=== PATIENT | female | born 1965 | race Caucasian/White ===

== ENCOUNTER 2023-08-29 09:29 | Outpatient (CLI) | payer OTHER, SELFPAY ==
[2023-08-29 19:46] LABS: Hematocrit 43.4 % (37.0-47.0); Hemoglobin 14.5 g/dL (12.0-15.0); Mean Corpuscular HGB Conc 33.4 g/dl (32-36); Mean Corpuscular Hemoglobin 31.3 pg (26-34); Mean Corpuscular Volume 93.5 fl (80-100); Mean Platelet Volume 10.1 fl (7.4-10.4); Platelet Count Result 475 k/mm3 (150-375); Red Blood Count 4.64 M/mm3 (4.2-5.4); Red Cell Distribution Width 12.5 % (11.5-14.5); White Blood Count 6.3 K/mm3 (4.5-10.0)
[2023-08-29 20:10] LABS: Alanine Aminotransferase 12 U/L (6-35); Albumin Level 4.2 g/dL (3.5-5.1); Alkaline Phosphatase 72 U/L (38-126); Anion Gap 6 mmol/L (8-16); Aspartate Amino Transferase 31 U/L (14-36); Bilirubin,Total 0.4 mg/dL (0.2-1.3); Blood Urea Nitrogen 16 mg/dL (7-17); Calcium 9.5 mg/dL (8.4-10.2); Carbon Dioxide 27 mmol/L (22-30); Chloride 105 mmol/L (98-107); Cholesterol 209 mg/dL (0-200); Estimated Glomerular Filt Rate > 60; Glucose 89 mg/dL (65-110); HDL Direct 58 mg/dL; Potassium 4.4 mmol/L (3.4-5.0); Sodium 138 mmol/L (137-145); Triglycerides 119 mg/dL (<150)
[2023-08-29 20:21] LABS: LDL Cholesterol Direct 107 mg/dL
== END 2023-08-29 09:30 | disposition home or self-care (01) ==
LOC: ANHBWCLAB 09:30
PROVIDERS: PCP Nurse Practitioner Adult Health; Visit Provider Nurse Practitioner Adult Health
DX: Z13.9 Encounter for screening, unspecified (principal); Z12.11 Encounter for screening for malignant neoplasm of colon; Z12.12 Encounter for screening for malignant neoplasm of rectum
CPT/HCPCS: 36415; 80053; 80061; 84443; 85027

== ENCOUNTER 2023-11-22 16:17 | Outpatient (CLI) | payer OTHER, SELFPAY ==
--- NOTE | ~2023-11-22 | XR_ITS ---
EXAMINATION: XR knee RT 3V DATE: 11/22/2023 16:37 INDICATION: Right knee pain. TECHNIQUE: 3 views of right knee were obtained. COMPARISON: None. FINDINGS: Bone alignment is normal. No fracture. There is moderate osteoarthritis of medial and navarro lofemoral compartments and mild osteoarthritis of lateral compartment. There is a small knee joint ef fusion. IMPRESSION: 1. Moderate right knee osteoarthritis. 2. Small right knee joint effusion. Reviewed, dictated and finalized at location A.
== END 2023-11-22 16:18 | disposition home or self-care (01) ==
PROVIDERS: PCP Nurse Practitioner Adult Health; Visit Provider Nurse Practitioner Adult Health
DX: M25.461 Effusion, right knee (principal); M17.11 Unilateral primary osteoarthritis, right knee
CPT/HCPCS: 73562

== ENCOUNTER 2023-12-30 10:43 | Outpatient (CLI) | payer OTHER, SELFPAY ==
--- NOTE | ~2023-12-30 | MR_ITS ---
MRI of the right knee Clinical history: Osteoarthritis Technique: Coronal proton density and proton density-weighted images, sagittal proton-density and T2 fat-sat images, and axial proton-density fat-saturated images were acquired. Findings: Anterior and posterior cruciate ligaments are intact. There is increased signal of the ACL, compatible with mucoid degenerative change. Medial collateral ligament and the lateral collateral li gament complex are intact. Popliteus tendon is intact. There is complex tearing at the posterior horn and posterior root of the medial meniscus, which are d iminutive. Suspected poorly delineated tear at the anterior horn of the lateral meniscus, with associ ated anterior 1.4 cm septated para meniscal cyst. There is extensive grade 4 chondral malacia the medial femoral condyle and medial tibial plateau towa rds the joint line. Articular cartilage in the lateral compartment demonstrates mild to moderate rashi dral malacia the lateral femoral condyle. There is patchy moderate chondral malacia the femoral troch annabel. Tricompartmental osteophytes are present, moderate to large. Extensor mechanism is intact. Small to moderate joint effusion. No Barraza's cyst. Impression: Complex tearing of the posterior horn and posterior root of the medial meniscus. Suspected poorly delineated tear of the anterior horn lateral meniscus with associated 1.4 cm anterio r septated parameniscal cyst. Advanced tricompartmental osteophytes, as detailed above. Plzbp-cm-ahelfghg joint effusion. Mucoid degenerative change of the ACL. Reviewed, dictated and finalized at [facility]. Impression: Complex tearing of the posterior horn and posterior root of the medial meniscus . Suspected poorly delineated tear of the anterior horn lateral meniscus with ass ociated 1.4 cm anterior septated parameniscal cyst. Advanced tricompartmental osteophytes, as detailed above. Nxyke-ql-irmcateo joint effusion. Mucoid degenerative change of the ACL.
== END 2023-12-30 10:44 ==
LOC: GOSHIMG 10:45
PROVIDERS: PCP Orthopaedic Surgery; Visit Provider Orthopaedic Surgery
DX: M17.11 Unilateral primary osteoarthritis, right knee (principal); S83.231A Complex tear of medial meniscus, current injury, right knee, initial encounter; X58.XXXA Exposure to other specified factors, initial encounter; M25.461 Effusion, right knee
CPT/HCPCS: 73721

== ENCOUNTER 2024-02-16 09:39 | Outpatient (CLI) | payer OTHER, SELFPAY ==
--- NOTE | 2024-02-16 10:22 | ECG_ITS ---
[facility] [address] Test Date: 2024-02-16 Pat Name: Justine Gonsales Department: Room: Gender: F Second Baller: : 1965 Requested By: Sinan Perez Order Number: [id number] Krysta MD: Gómez Edwards M.D. Measurements Intervals [place] Rate: 61 P: 72 TN: 152 QRS: 36 QRSD: 78 T: 35 QT: 401 QTc: 405 Interpretive Statements SINUS RHYTHM POSSIBLE LEFT ATRIAL ENLARGEMENT [-0.1mV P WAVE IN V1/V2] No previous ECG available for comparison Electronically Signed On 02-16-2024 13:49:26 CDT by Gómez Edwards M.D.
[2024-02-16 10:44] LABS: Basophils Absolute Auto 0.1 K/mm3 (0.0-0.1); Basophils Percent Auto 0.9 % (0.2-1.2); Eosinophils Absolute Auto 0.2 K/mm3 (0-0.3); Eosinophils Percent Auto 2.5 % (0-4.4); Hematocrit 42.6 % (37.0-47.0); Hemoglobin 14.1 g/dL (12.0-15.0); Immature Granulocyte Absolute 0.01 K/mm3 (0.00-0.031); Immature Granulocyte Percent A 0.1 % (0-0.5); Lymphocytes Absolute Auto 2.14 K/mm3 (0.9-3.2); Lymphocytes Percent Auto 31.4 % (18.3-44.2); Mean Corpuscular HGB Conc 33.1 g/dl (32-36); Mean Corpuscular Hemoglobin 30.7 pg (26-34); Mean Corpuscular Volume 92.8 fl (80-100); Mean Platelet Volume 9.5 fl (7.4-10.4); Monocytes Absolute Auto 0.4 K/mm3 (0.1-0.6); Monocytes Percent Auto 5.9 % (2.6-8.5); Neutrophils Percent Auto 59.2 % (45.5-73.1); Platelet Count Result 441 k/mm3 (150-375); Red Blood Count 4.59 M/mm3 (4.2-5.4); Red Cell Distribution Width 12.7 % (11.5-14.5); White Blood Count 6.8 K/mm3 (4.5-10.0)
[2024-02-16 12:57] LABS: Albumin Level 4.3 g/dL (3.5-5.1); Estimated Glomerular Filt Rate > 60; Glucose 96 mg/dL (65-110)
[2024-02-16 13:23] LABS: Hemoglobin A1C 5.3 % (<5.7)
[2024-02-16 13:24] LABS: Urine Cotinine POSITIVE
== END 2024-02-16 09:40 | disposition home or self-care (01) ==
LOC: ANHSURGERY 09:43
PROVIDERS: PCP Nurse Practitioner Adult Health; Visit Provider Orthopaedic Surgery
DX: Z01.818 Encounter for other preprocedural examination (principal); M17.11 Unilateral primary osteoarthritis, right knee
CPT/HCPCS: 80307; 82040; 82565; 82947; 83036; 85025; 86850; 86900; 86901; 93005

== ENCOUNTER 2024-05-29 10:32 | Outpatient (CLI) | payer OTHER, SELFPAY ==
[2024-05-29 11:11] LABS: Basophils Percent Auto 0.6 % (0.2-1.2); Eosinophils Absolute Auto 0.2 K/mm3 (0-0.3); Eosinophils Percent Auto 2.7 % (0-4.4); Hemoglobin 12.3 g/dL (12.0-15.0); Immature Granulocyte Absolute 0.02 K/mm3 (0.00-0.031); Immature Granulocyte Percent A 0.3 % (0-0.5); Lymphocytes Absolute Auto 1.75 K/mm3 (0.9-3.2); Mean Corpuscular HGB Conc 32.4 g/dl (32-36); Mean Corpuscular Hemoglobin 30.3 pg (26-34); Mean Corpuscular Volume 93.6 fl (80-100); Monocytes Absolute Auto 0.5 K/mm3 (0.1-0.6); Monocytes Percent Auto 8.1 % (2.6-8.5); Neutrophils Absolute Auto 3.8 K/mm3 (1.3-6.7); Neutrophils Percent Auto 60.3 % (45.5-73.1); Platelet Count Result 517 k/mm3 (150-375); Red Blood Count 4.06 M/mm3 (4.2-5.4); Red Cell Distribution Width 12.2 % (11.5-14.5); White Blood Count 6.3 K/mm3 (4.5-10.0)
[2024-05-29 11:30] LABS: Albumin Level 4.2 g/dL (3.5-5.1); Estimated Glomerular Filt Rate > 60; Glucose 89 mg/dL (65-110)
[2024-05-29 11:49] LABS: Hemoglobin A1C 5.6 % (<5.7)
[2024-05-29 11:49] LABS: Urine Cotinine NEGATIVE
[2024-05-29 13:04] LABS: MRSA (PCR) NOT DETECTED (NOT DETECTE)
== END 2024-05-29 10:33 | disposition home or self-care (01) ==
LOC: ANHSURGERY 10:37
PROVIDERS: PCP Nurse Practitioner Adult Health; Visit Provider Orthopaedic Surgery
DX: M17.11 Unilateral primary osteoarthritis, right knee (principal); Z01.818 Encounter for other preprocedural examination
CPT/HCPCS: 80307; 82040; 82565; 82947; 83036; 85025; 86850; 86900; 86901; 87641

== ENCOUNTER 2024-06-06 07:58 | Observation (INO) | payer OTHER, SELFPAY ==
[2024-02-16 09:48] VITALS: BMI 30.7
--- NOTE | 2024-02-16 10:03 | PC.NURSE ---
Report to the Outpatient Waiting Room, entrance under the green pavilion located off [facility], at time _6:00 AM on date __02/27/24 . Planned Procedure Time: __7:30 AM . Time changes happen often and if your time is changed the preop area will call you the afternoon before. - You and your visitor will be asked to self-screen and do not enter if you have any COVID symptoms. - A mask is optional within the hospital at this time. Patients may have clear liquids (water, carbonated beverages, clear teas, apple juice) until 3 hours prior to surgery (4:30 AM)with a maximum of 20 ounces. - No food from midnight until time of surgery - Infants may have breast milk until 4 hours before surgery, infant formula 6 hours prior to surgery. - Children will be allowed to drink immediately following surgery. If applicable, please bring a bottle or sippy cup to assist with drinking. Juice, water, soda, and popsicles are readily available. For infants on formula, please bring formula the day of surgery. Pacifiers are allowed. Take the following medications with a SIP of water the morning of surgery: ____NONE DO NOT STOP ANY OF YOUR OTHER PRESCRIPTION MEDICATIONS PRIOR TO SURGERY ?EXCEPT THE FOLLOWING Medications to discontinue per physician ___PT STATES WILL HOLD ASPIRIN AND IBUPROFEN 7 DAYS PRE OP.LAST DOSE 02/19/24, MAY TAKE TYLENOL IF NEEDED FOR PAIN. HOLD ALL VITAMINS 3 DAYS PRE OP .LAST DOSE Please no make-up, nail citizen of [place], hairspray, perfume, deodorant, or body powder the day of surgery. No jewelry (including any body piercings) or valuables the day of surgery, leave them at home. Please take a shower or bath the night before, or the morning of, surgery with an antibacterial soap. Wear comfortable, loose fitting clothing. Children are encouraged to wear pajamas. - Jewelry must be removed prior to entering the operating room. Rings and piercings that are not removed may be cut off. - The hospital will not accept responsibility for valuables. - Please leave all valuables, including medications, at home the day of surgery. If you are going home after surgery, a licensed tractor trailer driver must drive you home. - NO public transportation without another adult if you receive anesthesia. - We recommend that an adult stay with you for 24 hours following discharge. - We also recommend that you do not drive, make important decision, drink alcoholic beverages, or take any drugs that were not prescribed by your health care provider for at least 24 hours after your discharge time. Follow any additional instructions given to you from your surgeon. If you or anyone in your household have experienced Covid symptoms in the past week, please notify your surgeon or the nurse liaison at the phone number below for possible testing. VERBAL AND WRITTEN instructions given to ___PATIENT and asked if any additional questions and then verbalized understanding. Patient advised to call surgeon office or pre surgery nurse liaison [phone] if any additional questions.
[2024-02-16 10:19] VITALS: BP 156/70; PULSE 63; RESP 18; TEMP 36.8; O2SAT 97
--- NOTE | 2024-02-23 19:37 | P.HP_ITS ---
H&P: HPI History of Present Illness Date/Time: 02/23/24 19:37 Chief Complaint: Patient has knee pain Right. She has osteoarthritis of the Right Knee, unresponsive to conservative treatment. Review of Systems Musculoskeletal: Musculoskeletal: Reports arthralgias, Reports joint swelling and Reports stiffness PMFSH Surgical History Surgical History History of back surgery History of x3 Family History Family History Mother Family history of malignant neoplasm of brain Father History of ETOH abuse Social History Social History Smoking packs per day: 0.75 Smoking cigarettes per day: 15.0 Years smoked: 20 Smoking pack-years: 15.00 Smoking status: Former smoker Tobacco type: cigarettes Smoking end date: 01/10/24 Additional smoking assessment comments: DENIES ANY FORM OF TOBACCO USE Alcohol intake: never Substance use: current Substance use type: marijuana Last use: 02/13/24 Do You Feel Safe in your Home?: Yes Lack of Transportation: No Lack of Food: Never True Current Housing: I Have Housing Concerned About Future Housing: No Difficulty Paying Gas/Electric Bills: No Difficulty Paying for Meds: No Currently Unemployed: No Education: High School Diploma/GED Difficulty w/ Childcare or Family Care: No Living arrangements: with family Occupation/Education: occupation 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[employer] Gender identity (if verbalized by the patient): Female Spiritual care concerns: No Agree to blood products: Yes Meds Home Medications and Allergies Home Medications Medication Instructions Recorded Confirmed Type aspirin 81 mg tablet,delayed 81 mg PO DAILY 10/04/23 02/16/24 History release (Adult Aspirin Regimen) multivitamin 1 tablet PO DAILY 10/04/23 02/16/24 History acetaminophen 500 mg capsule 1,000 mg PO Q6H PRN Pain 02/16/24 02/16/24 History ibuprofen 400 mg tablet 400 mg PO Q6H PRN Pain 02/16/24 02/16/24 History Allergies Allergy/AdvReac Type Severity Reaction Status Date / Time No Known Allergies Allergy Verified 02/16/24 09:49 Exam Narrative: Patient has ROM 5-110. NVI. She walks with an antalgic gait. She has pain with any motion. Eyes: General: appearance normal, both eyes and all related structures Neck: Neck: supple Resp: Effort & Inspection: normal respiratory effort Cardio: Rate: regular rate Rhythm: regular rhythm Assessment and Plan Assessment and plan (1) Osteoarthritis of right knee: Code(s): M17.11 - Unilateral primary osteoarthritis, right knee Status: Acute Assessment and Plan: Patient has osteoarthritis of the RIGHT knee. She also has a meniscal tear. She has failed conservative treatment., consisting of injections, medications, therapy and time. She would like to proceed with RIGHT TOTAL ARTHROPLASTY. I discussed risks, benefits, limitations and alternatives in detail. She understands and agrees.
[2024-05-28 09:26] VITALS: BMI 33.0
--- NOTE | 2024-05-28 09:51 | PC.NURSE ---
Report to the Outpatient Waiting Room, entrance under the green pavilion located off [facility], at time _6:00AM_ on date _06/04/24_. Planned Procedure Time: _7:30AM_.? Time changes happen often and if your time is changed the preop area will call you the afternoon before. - You and your visitor will be asked to self-screen and do not enter if you have any COVID symptoms. Please call surgeon if you need to reschedule. - A mask is optional within the hospital at this time. Patients may have clear liquids (water, carbonated beverages, clear teas, apple juice) until 3 hours prior to surgery with a maximum of 20 ounces. - No food from midnight until time of surgery and no smoking. Take only the following medications with a SIP of water on the morning of surgery: ____NONE DO NOT STOP ANY OF YOUR OTHER PRESCRIPTION MEDICATIONS PRIOR TO SURGERY EXCEPT THE FOLLOWING Medications to discontinue per physician __HOLD ASPIRIN & IBUPROFEN 7 DAYS PRE-OP PER DR PATEL- LAST DOSE 05/27/24. HOLD ALL VITAMINS/SUPPLEMENTS 3 DAYS PRE0OP PER ANESTHESIA- LAST DOSE 05/31/24. Please no make-up, nail faroese, hairspray, perfume, deodorant, or body powder the day of surgery.? No jewelry (including any body piercings) or valuables the day of surgery, leave them at home.? Please take a shower or bath the night before, or the morning of, surgery with an antibacterial soap.? Wear comfortable, loose fitting clothing.? - Jewelry must be removed prior to entering the operating room.? Rings and piercings that are not removed may be cut off. - The hospital will not accept responsibility for valuables.? - Please leave all valuables, including medications, at home the day of surgery. If you are going home after surgery, a licensed drop hammer pile driver operator must drive you home.? - NO public transportation without another adult if you receive anesthesia. - We recommend that an adult stay with you for 24 hours following discharge. - We also recommend that you do not drive, make important decision, drink alcoholic beverages, or take any drugs that were not prescribed by your health care provider for at least 24 hours after your discharge time. Follow any additional instructions given to you from your surgeon. Telephone instructions given to PATIENT and asked if any additional questions and then verbalized understanding. Patient advised to call surgeon office or pre surgery nurse liaison [phone] if any additional questions.
--- NOTE | 2024-05-30 07:33 | P.HP_ITS ---
H&P: HPI History of Present Illness Date/Time: 05/30/24 07:33 Chief Complaint: Patient has osteoarthritis right knee that is unresponsive it is to conservative treatment at this time. She would like to proceed with knee replacement surgery. Review of Systems Musculoskeletal: Musculoskeletal: Reports arthralgias, Reports joint swelling and Reports stiffness Neurologic: Reports abnormal gait [facility] Surgical History Surgical History History of back surgery History of x3 Family History Family History Mother Family history of malignant neoplasm of brain Father History of ETOH abuse Social History Social History Smoking packs per day: 1 Smoking cigarettes per day: 20.0 Years smoked: 43 Smoking pack-years: 43.00 Smoking status: Former smoker Tobacco type: cigarettes Smoking end date: 03/18/24 Additional smoking assessment comments: DENIES ANY FORM OF TOBACCO USE Alcohol intake: never Substance use: current Substance use type: marijuana Last use: 02/13/24 Do You Feel Safe in your Home?: Yes Lack of Transportation: No Lack of Food: Never True Current Housing: I Have Housing Concerned About Future Housing: No Difficulty Paying Gas/Electric Bills: No Difficulty Paying for Meds: No Currently Unemployed: No Education: High School Diploma/GED Difficulty w/ Childcare or Family Care: No Living arrangements: with family Additional living arrangements comments: [place] Occupation/Education: occupation 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[employer] Gender identity (if verbalized by the patient): Female Spiritual care concerns: No Agree to blood products: Yes Meds Home Medications and Allergies Home Medications Medication Instructions Recorded Confirmed Type aspirin 81 mg tablet,delayed 81 mg PO DAILY 10/04/23 05/28/24 History release (Adult Aspirin Regimen) multivitamin 1 tablet PO DAILY 10/04/23 05/28/24 History acetaminophen 500 mg capsule 1,000 mg PO Q6H PRN Pain 02/16/24 05/28/24 History ibuprofen 400 mg tablet 400 mg PO Q6H PRN Pain 02/16/24 05/28/24 History tramadol 50 mg tablet 50 mg PO Q8H PRN pain #21 tabs 05/29/24 Rx Allergies Allergy/AdvReac Type Severity Reaction Status Date / Time No Known Allergies Allergy Verified 05/28/24 09:22 Exam Narrative: On exam she has motion of her right knee from about 3 to 110?. She has varus deformity grinding crepitus and pain manipulation. She walks with an antalgic gait. Assessment and Plan Assessment and plan (1) Osteoarthritis of right knee: Code(s): M17.11 - Unilateral primary osteoarthritis, right knee Status: Acute Assessment and Plan: Patient has arthritis of her right knee. She has failed conservative treatment like to proceed knee replacement surgery. I have discussed this with her risks benefits limitations and alternatives in detail will proceed her request with total arthroplasty on the Right knee.
[2024-06-04] VITALS (14 sets, daily range): BP systolic 125–176; BP diastolic 63–86; PULSE 63–72; RESP 12–18; TEMP 36.1–37.1; O2SAT 87–100
[2024-06-04] MEDS: ACETAMINOPHEN 500 MG TABLET 1000 MG PO (06:20)
[2024-06-04] MEDS: LACTATED RINGERS 1,000 ML 30 ML IV CONT ×2 (06:30→09:40)
[2024-06-04] MEDS: VANCOMYCIN 1,250 MG/NS 250 ML BAG 166.67 MG IVPB (06:32)
--- NOTE | 2024-06-04 06:52 | WPDHPUPDATE1 ---
History and Physical Update Update Date/Time: 06/04/24 06:52 History and Physical has been reviewed, including an updated exam of the patient. There are NO changes in the patient's condition. Risks, benefits, and alternatives have been discussed and questions answered. Patient agrees to proceed with procedure.
[2024-06-04] MEDS: TRANEXAMIC ACID 1,000MG/ISO100 1,000 MG/100 ML BAG 200 MG IVPB (07:00)
--- NOTE | 2024-06-04 07:06 | WPDANESEPPF ---
Anes - Initial Pre Proc Eval Procedure: Operation Date: 06/04/24 07:30 Proposed Procedures p Right Total Knee Arthroplasty - Sinan Davis MD Date/Time: 06/04/24 07:06 Surgeon: Sinan Davis MD Pre Op Diagnosis: oa right knee Patient Data Age: 58 Gender: F Height: 1.57 m Weight: 80.6 kg Last Vital Signs Temp 97.1 F L 06/04/24 06:41 Pulse 63 06/04/24 06:41 Resp 16 06/04/24 06:41 BP 164/74 H 06/04/24 07:02 Pulse Ox 97 06/04/24 06:41 O2 Del Method Room Air 06/04/24 06:41 Allergies Allergy/AdvReac Type Severity Reaction Status Date / Time No Known Allergies Allergy Verified 06/04/24 06:10 Home Medications Medication Instructions Recorded Confirmed Type aspirin 81 mg tablet,delayed 81 mg PO DAILY 10/04/23 06/04/24 History release (Adult Aspirin Regimen) multivitamin 1 tablet PO DAILY 10/04/23 06/04/24 History acetaminophen 500 mg capsule 1,000 mg PO Q6H PRN Pain 02/16/24 06/04/24 History ibuprofen 400 mg tablet 400 mg PO Q6H PRN Pain 02/16/24 06/04/24 History tramadol 50 mg tablet 50 mg PO Q8H PRN pain #21 tabs 05/29/24 06/04/24 Rx rivaroxaban 10 mg tablet (Xarelto) 10 mg PO DAILY PE prophylaxis s/p 06/04/24 Rx joint replacement 10 days #10 tabs Patient hx anesthesia problems: none Family hx anesthesia problems: none Results Review: All pre-operative results and documents have been reviewed as part of the pre-operative evaluation. [facility] Surgical History Surgical History History of back surgery History of x3 Family History Family History Mother Family history of malignant neoplasm of brain Father History of ETOH abuse Social History Social History Smoking packs per day: 1 Smoking cigarettes per day: 20.0 Years smoked: 43 Smoking pack-years: 43.00 Smoking status: Former smoker Tobacco type: cigarettes Smoking end date: 03/18/24 Additional smoking assessment comments: DENIES ANY FORM OF TOBACCO USE Alcohol intake: never Substance use: current Substance use type: marijuana Last use: 02/13/24 Do You Feel Safe in your Home?: Yes Lack of Transportation: No Lack of Food: Never True Current Housing: I Have Housing Concerned About Future Housing: No Difficulty Paying Gas/Electric Bills: No Difficulty Paying for Meds: No Currently Unemployed: No Education: High School Diploma/GED Difficulty w/ Childcare or Family Care: No Living arrangements: with family Additional living arrangements comments: [place] Occupation/Education: occupation 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 Lower R incisor is very loose. Pt states that she is planning to have it pulled in the next several weeks. ) Neurological: alert and oriented Last oral intake: >/= 8 hours ASA classification: II Emergent: no Anesthetic plan: proceed Anesthesia type and monitoring: general and standard monitoring Results Review: All pre-operative results and documents have been reviewed as part of the pre-operative evaluation. Ex smoker, 43 pack years. Informed Consent: The patient's anesthetic plan and its attendant risks and benefits were discussed with the patient/family/POA. Questions were solicited and answers provided to the satisfaction of the patient/family/POA.
--- NOTE | 2024-06-04 07:21 | SUR.PREOP ---
0710- PT HAD SOME MILD SCALP ITCHING WHEN VANCO AND TXA WAS RUNNING IN PRE OP.NO OTHER SIGNS OR SYMPTOMS. TURNED OFF MEDICATIONS AND PT UP TO RESTROOM. PT STATED THE SCALP ITCHING WAS RESOLVING. SPOKE WITH DR. PATEL. HE STATED TO SLOW DOWN RATE AND IF ITCHING STARTS AGAIN OR OTHER SYMPTOMS TO STOP VANCO. UPDATED PT, BLOCK PILER AND ANESTHESIA. VANCO PAO SLOWED DOWN TO 100 HR
[2024-06-04] MEDS: ceFAZolin 2 GM/D5W 50 ML 2 GM/50 ML BAG IVPB ×3 (07:40→23:55)
[2024-06-04] MEDS: SODIUM CHLORIDE 0.9% IV 37.7 ML, MORPHINE SULFATE INJ (*CRX) 2 MG, ROPivacaine HCL 1% 2... INFILTRATE (07:59)
--- NOTE | 2024-06-04 08:27 | WPDANESPNB ---
Anes - Peripheral Nerve Block Date/Time: 06/04/24 08:27 I have discussed with the patient/family/POA the placement of a peripheral nerve block for post-operative pain management, including associated risks, benefits, complications, and side effects. Alternative methods of post-operative analgesia were detailed. Questions were solicited and answers provided to the satisfaction of the patient/family/POA. Time-Out: A pre-procedural Time-Out was completed immediately before starting the procedure and confirmed: Patient Identification, Site, Procedure, Patient Position and the Availability of Requisite Equipment. Assisted by and time out by myself and OR hydroelectric component machinist Obed GAONA. Clinical Indications: Acute post-operative pain management requested by the operative surgeon. Nerve Block Insertion Note Anes-nerve block: adductor canal right Patient position: supine Skin prep: chlorhexidine Needle: 22 gauge, stimulating, insulated echogenic needle. Needle length: 80 mm Technique: ultrasound Injectate: other (Bupiv 0.5%, 15 mls. ) Observations: tolerated well Complications: none Procedure start time:: 722 Procedure end time::
--- NOTE | 2024-06-04 09:00 | W.PM.PROC2 ---
Procedure Note - Detailed Date of Procedure 06/04/24 Pre-op Diagnosis Osteoarthritis right knee Post-op Diagnosis Same Procedure Performed RIGHT total knee arthroplasty Surgeon Sinan Davis MD [employer] Jhonny Anesthesia General Indications Pain and Arthritis Description of Procedure The patient was brought to operating room #8. A general anesthetic was administered. Placed on the operating table and sterilely prepped and draped in usual manner. A longitudinal incision was made. Tourniquet inflated to 300 mmHg for a total of 44 minutes. Dissection was carried down to the fascia. Medial parapatellar incision was made and the patella subluxated laterally. Patella cut from 23 to 15 mm and sized for a 34 mm button. The tibia was cut perpendicular to the long axis and femur cut in 5 degrees of valgus. A 62.5 femur trialed. 67 tibia was felt to fit the best. The soft tissues balanced, hemostasis obtained. All [address], 67 tibia, 62.5 femur, 34 mm patella, and 11 mm poly. Motion was 0-125 degrees with good stability in both flexion and extension. The wound was closed with #2 Vicryl, 2-0 Vicryl and trisha. [employer]plants [employer] Estimated Blood Loss 200 Drains No Packing No Pathology None sent Complications No immediate complications Condition Stable Disposition PACU [facility] Billing Surgery - Charge Forward: Surgery Billing (63924 Total Knee)
[2024-06-04] MEDS: fentaNYL CITRATE INJ (*CRX) 100 MCG/2 ML VIAL 25 MCG IV PUSH ×2 (09:48→09:51)
[2024-06-04] MEDS: HYDROmorphone HCL INJ (*CRX) 1 MG/ML SYR IV PUSH (11:20)
[2024-06-04] MEDS: ONDANSETRON INJ 4 MG/2 ML VIAL IV PUSH (13:52)
--- NOTE | 2024-06-04 14:00 | WPDCN ---
Assessment and Plan Assessment and plan (1) Osteoarthritis of right knee: Code(s): M17.11 - Unilateral primary osteoarthritis, right knee Status: Acute Assessment and Plan: Postoperative day 0 status post right total knee arthroplasty. Wound care, pain control, and DVT prophylaxis deferred to primary service. Check baseline labs in a.m. Plan Thank you for allowing us to participate in this patient's care. Please do not hesitate to contact us with any questions. HPI Data of Consult Date/Time: 06/04/24 13:00 Requesting Physician: Sinan Davis MD Primary Care Provider: Chantel Ross APRN Consult Narrative Reason for consult: Medical management. Narrative: This is a very pleasant 58-year-old female with osteoarthritis and history of tobacco use (quit in March 2024) whom the hospitalist service has been consulted for help managing her medical conditions postoperatively. She has had longstanding pain in her right knee which is not been amenable to conservative outpatient treatment and she elected for replacement today. Surgery was performed under general anesthesia with no immediate complications documented an estimated blood loss of 200 mL. Postoperatively she has been doing pretty well on her pain has been manageable. She denies paresthesias, skin color, and temperature changes distal to the surgical site. She also denies fever, chills, sweats, chest pain, shortness of breath, nausea, and vomiting. No personal or family history of venous thromboembolism. She is quite healthy. She was a tobacco user and quit in March of this urine is doing well in that regard. She was told that she has perhaps mild emphysema but she is asymptomatic with that. Review of Systems Review of Systems: 12 systems were reviewed and are negative except for as per HPI. [facility] Past Medical History Medical History (Updated 06/04/24 @ 20:38 by Narda Arguelles PA-C) Anxiety Arthritis Emphysema lung Mild per patient report. Surgical History Surgical History (Updated 06/04/24 @ 14:05 by Narda Arguelles PA-C) History of arthroplasty of right knee (06/04/24) History of back surgery History of x3 Family History Family History Mother Family history of malignant neoplasm of brain Father History of ETOH abuse Social History Social History (Updated 06/04/24 @ 14:07 by Narda Arguelles PA-C) Social History: Surrogate medical decision maker: Robert Lackeyer, spouse. Code status: Full code. Smoking packs per day: 1 Smoking cigarettes per day: 20.0 Years smoked: 43 Smoking pack-years: 43.00 Smoking status: Former smoker Tobacco type: cigarettes Smoking end date: 03/18/24 Alcohol intake: never Substance use: current Substance use type: marijuana Last use: 02/13/24 Do You Feel Safe in your Home?: Yes Lack of Transportation: No Lack of Food: Never True Current Housing: I Have Housing Concerned About Future Housing: No Difficulty Paying Gas/Electric Bills: No Difficulty Paying for Meds: No Currently Unemployed: No Education: High School Diploma/GED Difficulty w/ Childcare or Family Care: No Living arrangements: with family Additional living arrangements comments: Lives with spouse. Occupation/Education: occupation Additional occupation/education comments: [employer]. Spiritual care concerns: No Agree to blood products: Yes Meds Home Medications and Allergies Home Medications Medication Instructions Recorded Confirmed Type aspirin 81 mg tablet,delayed 81 mg PO DAILY 10/04/23 06/04/24 History release (Adult Aspirin Regimen) multivitamin 1 tablet PO DAILY 10/04/23 06/04/24 History acetaminophen 500 mg capsule 1,000 mg PO Q6H PRN Pain 02/16/24 06/04/24 History ibuprofen 400 mg tablet 400 mg PO Q6H PRN Pain 02/16/24 06/04/24 History tramadol 50 mg tablet 50 mg PO Q8
[2024-06-04] MEDS: HYDROcodone/acetaminophen (*CRX) 5-325 MG TABLET 1 TAB PO (14:50)
[2024-06-04] MEDS: RIVAROXABAN 10 MG TABLET PO (16:27)
[2024-06-04] MEDS: SENNA/DOCUSATE SODIUM TABLET 2 TAB PO (16:27)
[2024-06-04] MEDS: HYDROmorphone HCL INJ (*CRX) 1 MG/ML SYR 0.5 MG IV PUSH (16:28)
[2024-06-04] MEDS: HYDROcodone/acetaminophen (*CRX) 7.5-325 MG TABLET 1 TAB PO ×2 (19:53→23:51)
[2024-06-05 00:27] VITALS: BP 148/70; PULSE 78; RESP 17; TEMP 36.6; O2SAT 94
[2024-06-05] MEDS: HYDROcodone/acetaminophen (*CRX) 5-325 MG TABLET 1 TAB PO ×3 (01:32→23:25)
[2024-06-05 04:31] VITALS: BP 143/64; PULSE 66; RESP 17; TEMP 36.9; O2SAT 94
[2024-06-05] MEDS: CYCLOBENZAPRINE HCL 10 MG TABLET PO ×3 (05:26→23:26)
[2024-06-05 05:46] LABS: Basophils Absolute Auto 0.1 K/mm3 (0.0-0.1); Basophils Percent Auto 0.5 % (0.2-1.2); Eosinophils Absolute Auto 0.1 K/mm3 (0-0.3); Eosinophils Percent Auto 0.5 % (0-4.4); Hematocrit 34.7 % (37.0-47.0); Hemoglobin 11.1 g/dL (12.0-15.0); Immature Granulocyte Absolute 0.04 K/mm3 (0.00-0.031); Immature Granulocyte Percent A 0.4 % (0-0.5); Lymphocytes Absolute Auto 1.85 K/mm3 (0.9-3.2); Lymphocytes Percent Auto 19.5 % (18.3-44.2); Mean Corpuscular Volume 93.8 fl (80-100); Mean Platelet Volume 9.4 fl (7.4-10.4); Monocytes Absolute Auto 0.6 K/mm3 (0.1-0.6); Monocytes Percent Auto 6.7 % (2.6-8.5); Neutrophils Absolute Auto 6.9 K/mm3 (1.3-6.7); Neutrophils Percent Auto 72.4 % (45.5-73.1); Platelet Count Result 447 k/mm3 (150-375); Red Cell Distribution Width 12.9 % (11.5-14.5); White Blood Count 9.5 K/mm3 (4.5-10.0)
[2024-06-05 05:53] LABS: Anion Gap 4 mmol/L (4-12); Blood Urea Nitrogen 14 mg/dL (7-17); Calcium 8.6 mg/dL (8.4-10.2); Carbon Dioxide 32 mmol/L (22-30); Chloride 100 mmol/L (98-107); Estimated CRCL calculation 65 ml/min; Estimated Glomerular Filt Rate > 60; Glucose 102 mg/dL (65-110); Potassium 3.8 mmol/L (3.4-5.0); Sodium 136 mmol/L (137-145)
--- NOTE | 2024-06-05 07:07 | PM.PNORT ---
Progress Note: A&P Assessment and Plan (1) History of knee replacement procedure of right knee: Code(s): Z96.651 - Presence of right artificial knee joint Status: Acute Assessment and Plan: Patient is status post total knee arthroplasty right. Overall she is doing fine. He is able ambulate and get around. I think she can be dismissed today. Subjective Subjective Date/Time Seen: 06/05/24 07:07 Post Op day: 1 Principal diagnosis: Right total knee arthroplasty for right knee osteoarthritis Review of Systems Musculoskeletal: Musculoskeletal: Reports arthralgias, Reports joint swelling and Reports stiffness Neurologic: Reports abnormal gait Exam Narrative: Patient can wiggle her toes. Neurologically she is intact. She is able ambulate with a walker. Objective Data Vital Signs Vital Signs: Vital Signs - 24 hr 06/04/24 09:40 06/04/24 09:55 06/04/24 10:10 Temperature 98.6 F Pulse Rate 70 64 66 Respiratory Rate 12 12 12 Blood Pressure 148/81 H 128/63 127/72 Pulse Oximetry 100 100 95 Oxygen Delivery Simple Face Mask Simple Face Mask Nasal Cannula Oxygen Flow Rate 8 8 2 06/04/24 10:25 06/04/24 10:40 06/04/24 10:50 Temperature 98.1 F 98.8 F Pulse Rate 63 67 63 Respiratory Rate 12 12 14 Blood Pressure 125/74 151/72 H 144/71 H Pulse Oximetry 99 99 99 Oxygen Delivery Nasal Cannula Nasal Cannula Nasal Cannula Oxygen Flow Rate 2 2 2 06/04/24 10:54 06/04/24 11:09 06/04/24 12:20 Temperature 96.9 F L 97.2 F L 97.1 F L Pulse Rate 64 64 72 Respiratory Rate 16 16 18 Blood Pressure 152/64 H 153/73 H 137/67 Pulse Oximetry 100 97 87 L Oxygen Delivery Oxygen Flow Rate 06/04/24 12:39 06/04/24 13:28 06/04/24 13:55 Temperature 97.2 F L Pulse Rate 64 Respiratory Rate 16 Blood Pressure 153/73 H Pulse Oximetry 97 Oxygen Delivery Room Air Room Air Oxygen Flow Rate 06/04/24 14:45 06/04/24 20:37 06/05/24 00:27 Temperature 97.8 F 97.6 F 97.9 F Pulse Rate 66 63 78 Respiratory Rate 14 18 17 Blood Pressure 145/68 H 155/72 H 148/70 H Pulse Oximetry 98 98 94 Oxygen Delivery Oxygen Flow Rate 06/05/24 04:31 Temperature 98.4 F Pulse Rate 66 Respiratory Rate 17 Blood Pressure 143/64 H Pulse Oximetry 94 Oxygen Delivery Oxygen Flow Rate Intake/Output Intake/Output: Intake & Output 06/02/24 06/03/24 06/04/24 06/05/24 23:59 23:59 23:59 23:59 Intake Total 1670 50 Balance 1670 50 Meds/Results Medications: Active Medications Generic Name Dose Route Start Last Admin Trade Name Freq PRN Reason Stop Dose Admin Hydrocodone Bitart/Acetaminophen 1 tab 06/04/24 10:54 06/05/24 05:25 Hydrocodone/Acetaminophen (*Crx) 5-325 Mg Tablet PO 1 tab Q4H PRN Administration Pain Rated 4-6 Hydrocodone Bitart/Acetaminophen 1 tab 06/04/24 10:54 06/04/24 23:51 Hydrocodone/Acetaminophen (*Crx) 7.5-325 Mg Tablet PO 1 tab Q4H PRN Administration Pain Rated 7-10 Aspirin 81 mg 06/05/24 09:00 Aspirin 81 Mg Enteric Tablet PO DAILY SARTHAK Cyclobenzaprine HCl 10 mg 06/04/24 10:54 06/05/24 05:26 Cyclobenzaprine Hcl 10 Mg Tablet PO 10 mg Q8H PRN Administration Spasms Diphenhydramine HCl 25 mg 06/04/24 10:54 Diphenhydramine Hcl Inj 50 Mg/Ml Vial IV PUSH Q6H PRN Itching Hydromorphone HCl 1 mg 06/04/24 10:54 06/04/24 11:20 Hydromorphone Hcl Inj (*Crx) 1 Mg/Ml Syr IV PUSH 1 mg Q2H PRN Administration Breakthrough Pain Rated 7-10 or NPO Hydromorphone HCl 0.5 mg 06/04/24 10:54 06/04/24 16:28 Hydromorphone Hcl Inj (*Crx) 1 Mg/Ml Syr IV PUSH 0.5 mg Q2H PRN Administration Breakthrough Pain Rated 4-6 or NPO Ibuprofen 800 mg in 200 mls @ 400 mls/hr 06/04/24 10:54 Caldolor 800 Mg/200 Ml IVPB Q6H PRN Breakthrough Pain Rated 1-3 or NPO Cefazolin Sodium 2 gm in 50 mls @ 100 mls/hr 06/04/24 16:00 06/05/24 00:25 Ancef 2 Gm/D5w 50 Ml IVPB 06/05/24 08:29 I
--- NOTE | 2024-06-05 07:10 | PM.DS ---
DS: Admitting Diagnosis Discharge Date 06/05/2024 Admitting Diagnosis Right total knee arthroplasty for right knee osteoarthritis DS: Discharge Diagnosis Discharge Diagnosis (1) History of knee replacement procedure of right knee: Code(s): Z96.651 - Presence of right artificial knee joint Status: Acute Assessment and Plan: Patient had a total knee arthroplasty done yesterday. She is doing well. At this point I think she can be dismissed home. I would anticipate follow-up 10 to 14 days for sutures out. She may be full weight-bearing. Hydrocodone and doxycycline given per Medicine. Follow-up as described. DS: Summary Hospital Course Hospital Course: Patient underwent a typical hospital course. She may be dismissed at this time. Follow up 10 to 14 days for sutures out. If she has any changes or problems she will call. Time Spent with Patient Time attestation: Total time spent providing and/or coordinating discharge services: Exam Narrative: Patient can wiggle her toes. Her dressing is intact. She is able ambulate with a walker. DS: Data Data Completed and Pending Labs on day of discharge: Labs from last 24 hours 06/05/24 05:17 WBC 9.5 RBC 3.70 L Hgb 11.1 L Hct 34.7 L MCV 93.8 MCH 30.0 MCHC 32.0 RDW 12.9 Plt Count 447 H MPV 9.4 Immature Gran % (Auto) 0.4 Neut % (Auto) 72.4 Lymph % (Auto) 19.5 [place] % (Auto) 6.7 Eos % (Auto) 0.5 Baso % (Auto) 0.5 Lymph # (Auto) 1.85 [place] # (Auto) 0.6 Eos # (Auto) 0.1 Baso # (Auto) 0.1 Abs Immat Gran (auto) 0.04 H Absolute Neuts (auto) 6.9 H Absolute Nucleated RBC 0.000 Nucleated RBC % 0.0 Sodium 136 L Potassium 3.8 Chloride 100 Carbon Dioxide 32 H Anion Gap 4 BUN 14 Creatinine 0.80 Estim Creat Clear Calc 65 Estimated GFR > 60 Glucose 102 Calcium 8.6 Magnesium 2.0 Discharge Plan Discharge Patient Disposition: Home, Self-Care Discharge Instructions: Dr. Sinan Davis M.D [address] [address] POST-OPERATIVE DISCHARGE INSTRUCTIONS TOTAL KNEE ARTHROPLASTY 1. When resting, do not rest in the chair.When resting, lie on your back, with back flat on the couch or bed, with leg elevated above heart to minimize swelling. You may put a pillow under your head. . Significant swelling could indicate a blood clot and if this occurs call the office (or go to the ER) to have a venous ultrasound. Therefore, do not rest in a chair. 2. At least five times a day spend several minutes stretching your knee into flexion while sitting in the chair and also stretching your knee out straight The abilities to bend your knee fulling and straighten your knee fully are two most important knee functions to focus on during your recovery. 3. It is ok to sit in chair to eat, use the toilet and receive a guest and to do your stretching exercises, but, sitting in a chair will cause your leg to swell. Therefore, avoid additional time sitting in the chair. and don't rest in the chair. 4. Wound Care: Nursing will give you an additional Mepilex dressing at the time of discharge. Patient to remove the dressing and apply a new Mepilex dressing at home 7 days after surgery and leave the dressing on until seen in office. 5. May shower with a Mepilex dressing in place.The water will run off the dressing. 6. Unless you are told otherwise, you may put full weight on your operated leg. Use a walker for balance and practice walking as normally as you can, ideally for a few minutes every hour while you are awake. 7. I would advise against putting ice packs on your knee incision. Ice constricts blood flow which can impar healing of the knee incision. IMPORTANT: Remember not to sit in the chair for more than 30 minutes at a time. As a rule, during the first 14 days after surgery, only sit in the chair to work on the chair knee bending stretch exercise, for meals or for use of the restroom
--- NOTE | 2024-06-05 07:46 | PM.IMPN ---
Progress Note: A&P Assessment and Plan (1) Osteoarthritis of right knee: Code(s): M17.11 - Unilateral primary osteoarthritis, right knee Status: Acute Assessment and Plan: Postoperative day 1 status post right total knee arthroplasty. Wound care, pain control, and DVT prophylaxis deferred to primary service. Check baseline labs in a.m. Plan Thank you for allowing us to participate in this patient's care. Please do not hesitate to contact us with any questions. Subjective Date/time seen: 06/05/24 07:46 Interval history: Patient reports she is having pretty severe knee pain. She feels like the pain medication does help but she got behind with her pain last night and did not let nursing know right away. She was unable to tolerate therapy this morning. The plan will be to try therapy this afternoon and maybe discharge home. She is hesitant to discharge today because of her pain. Review of Systems Review of Systems: 12 systems were reviewed and are negative except for as per HPI. Exam Narrative: General: appears uncomfortable, in no acute distress Respiratory: breathing is unlabored with even chest rise/fall, lungs are clear without wheezing, rhonchi, and crackles Cardiovascular: Rate and rhythm regular, normal s1s2, no murmur Abdomen: Soft, round, non-tender, active bowel sounds Extremities: No cyanosis, edema, clubbing. Pulses 2/2 Neuro: A&O x 4 Skin: Warm, dry, intact. Surgical incision to right knee with surgical dressing in place. Clean, dry, and intact. FAISAL hose in place. Objective Data Vital Signs Vital Signs: Vital Signs - 24 hr 06/04/24 09:40 06/04/24 09:55 06/04/24 10:10 Temperature 98.6 F Pulse Rate 70 64 66 Respiratory Rate 12 12 12 Blood Pressure 148/81 H 128/63 127/72 Pulse Oximetry 100 100 95 Oxygen Delivery Simple Face Mask Simple Face Mask Nasal Cannula Oxygen Flow Rate 8 8 2 06/04/24 10:25 06/04/24 10:40 06/04/24 10:50 Temperature 98.1 F 98.8 F Pulse Rate 63 67 63 Respiratory Rate 12 12 14 Blood Pressure 125/74 151/72 H 144/71 H Pulse Oximetry 99 99 99 Oxygen Delivery Nasal Cannula Nasal Cannula Nasal Cannula Oxygen Flow Rate 2 2 2 06/04/24 10:54 06/04/24 11:09 06/04/24 12:20 Temperature 96.9 F L 97.2 F L 97.1 F L Pulse Rate 64 64 72 Respiratory Rate 16 16 18 Blood Pressure 152/64 H 153/73 H 137/67 Pulse Oximetry 100 97 87 L Oxygen Delivery Oxygen Flow Rate 06/04/24 12:39 06/04/24 13:28 06/04/24 13:55 Temperature 97.2 F L Pulse Rate 64 Respiratory Rate 16 Blood Pressure 153/73 H Pulse Oximetry 97 Oxygen Delivery Room Air Room Air Oxygen Flow Rate 06/04/24 14:45 06/04/24 20:37 06/05/24 00:27 Temperature 97.8 F 97.6 F 97.9 F Pulse Rate 66 63 78 Respiratory Rate 14 18 17 Blood Pressure 145/68 H 155/72 H 148/70 H Pulse Oximetry 98 98 94 Oxygen Delivery Oxygen Flow Rate 06/05/24 04:31 Temperature 98.4 F Pulse Rate 66 Respiratory Rate 17 Blood Pressure 143/64 H Pulse Oximetry 94 Oxygen Delivery Oxygen Flow Rate Intake/Output Intake/Output: Intake & Output 06/02/24 06/03/24 06/04/24 06/05/24 23:59 23:59 23:59 23:59 Intake Total 1670 50 Balance 1670 50 Meds/Results Medications: Active Medications Generic Name Dose Route Start Last Admin Trade Name Freq PRN Reason Stop Dose Admin Hydrocodone Bitart/Acetaminophen 1 tab 06/04/24 10:54 06/05/24 05:25 Hydrocodone/Acetaminophen (*Crx) 5-325 Mg Tablet PO 1 tab Q4H PRN Administration Pain Rated 4-6 Hydrocodone Bitart/Acetaminophen 1 tab 06/04/24 10:54 06/04/24 23:51 Hydrocodone/Acetaminophen (*Crx) 7.5-325 Mg Tablet PO 1 tab Q4H PRN Administration Pain Rated 7-10 Aspirin 81 mg 06/05/24 09:00 Aspirin 81 Mg Enteric Tablet PO DAILY SARTHAK Cyclobenzaprine HCl 10 mg 06/04/24 10:54 06/05/24 05:26 Cyclobenzaprine Hcl 10 Mg Tablet PO 10 mg Q8H PRN Administration Spasms D
[2024-06-05] MEDS: ONDANSETRON INJ 4 MG/2 ML VIAL IV PUSH (08:19)
[2024-06-05] MEDS: ceFAZolin 2 GM/D5W 50 ML 2 GM/50 ML BAG IVPB (08:19)
[2024-06-05] MEDS: SENNA/DOCUSATE SODIUM TABLET 2 TAB PO ×2 (08:20→17:58)
[2024-06-05] MEDS: polyethylene glycoL 3350 17 GM POWD.PACK PO (08:20)
[2024-06-05] MEDS: ASPIRIN 81 MG ENTERIC TABLET PO (08:20)
--- NOTE | 2024-06-05 09:38 | P.PNAN_ITS ---
Anes - Prog Note Post-Op Date/Time: 06/05/24 09:38 Cardiovascular status: normal Respiratory status: normal Airway patency: baseline Mental status: baseline Post-Op hydration status: normal Vital Signs: Last Vital Signs Temp 98.4 F 06/05/24 04:31 Pulse 66 06/05/24 04:31 Resp 17 06/05/24 04:31 BP 143/64 H 06/05/24 04:31 Pulse Ox 94 06/05/24 04:31 O2 Del Method Room Air 06/05/24 08:20 O2 Flow Rate 2 06/04/24 10:50 Pain Score (VAS): 0/10 I/O: Intake & Output 06/04/24 06/05/24 06/05/24 23:59 07:59 15:59 Intake Total 1040 50 Balance 1040 50 Laboratory Tests 06/05/24 05:17 06/05/24 05:17 06/05/24 05:17 WBC 9.5 RBC 3.70 L Hgb 11.1 L Hct 34.7 L MCV 93.8 MCH 30.0 MCHC 32.0 RDW 12.9 Plt Count 447 H MPV 9.4 Immature Gran % (Auto) 0.4 Neut % (Auto) 72.4 Lymph % (Auto) 19.5 [place] % (Auto) 6.7 Eos % (Auto) 0.5 Baso % (Auto) 0.5 Lymph # (Auto) 1.85 [place] # (Auto) 0.6 Eos # (Auto) 0.1 Baso # (Auto) 0.1 Abs Immat Gran (auto) 0.04 H Absolute Neuts (auto) 6.9 H Absolute Nucleated RBC 0.000 Nucleated RBC % 0.0 Sodium 136 L Potassium 3.8 Chloride 100 Carbon Dioxide 32 H Anion Gap 4 BUN 14 Creatinine 0.80 Estim Creat Clear Calc 65 Estimated GFR > 60 Glucose 102 Calcium 8.6 Magnesium 2.0 Post-procedural complaints: none Patient Feedback: Patient satisfied with anesthetic care.
[2024-06-05] MEDS: HYDROcodone/acetaminophen (*CRX) 7.5-325 MG TABLET 1 TAB PO ×3 (09:50→20:58)
[2024-06-05 09:57] VITALS: BP 160/58; PULSE 69; RESP 16; TEMP 36.2; O2SAT 98
--- NOTE | 2024-06-05 12:28 | PCPTNOTE ---
Attempted to see patient for PT, however patient was eating lunch.
[2024-06-05 12:39] VITALS: BP 160/58; PULSE 63; RESP 18; TEMP 36.3; O2SAT 98
[2024-06-05] MEDS: HYDROmorphone HCL INJ (*CRX) 1 MG/ML SYR IV PUSH (16:04)
[2024-06-05] MEDS: RIVAROXABAN 10 MG TABLET PO (17:58)
[2024-06-05 18:13] VITALS: BP 146/53; PULSE 65; RESP 18; TEMP 36.1; O2SAT 95
[2024-06-05 20:00] VITALS: BP 165/69; PULSE 71; RESP 18; TEMP 36.9; O2SAT 92
[2024-06-05] MEDS: IBUPROFEN IV 800 MG/200 ML 800 MG/200 ML BAG 400 MG IVPB (20:12)
[2024-06-06] VITALS: BP 136/61; PULSE 64; RESP 18; TEMP 36.6; O2SAT 91
--- NOTE | ~2024-06-06 | XR_ITS ---
Right Knee Technique: Portable AP and crosstable lateral views Clinical History: Status post TKR Findings: Patient is status post total knee replacement. Orthopedic hardware alignment appears anatom ic. No hardware complication is evident. Subcutaneous emphysema and swelling is likely postoperative in nature. No acute osseous fracture is seen. Impression: Status post total knee replacement, without evidence of hardware complication. Reviewed, dictated and finalized at location . Impression: Status post total knee replacement, without evidence of hardware complication.
[2024-06-06 03:59] VITALS: BP 141/59; PULSE 65; RESP 18; TEMP 36.8; O2SAT 92
[2024-06-06] MEDS: IBUPROFEN IV 800 MG/200 ML 800 MG/200 ML BAG 400 MG IVPB (04:03)
[2024-06-06] MEDS: HYDROcodone/acetaminophen (*CRX) 7.5-325 MG TABLET 1 TAB PO ×2 (08:57→13:08)
[2024-06-06] MEDS: ASPIRIN 81 MG ENTERIC TABLET PO (08:58)
[2024-06-06 09:00] VITALS: RESP 18; O2SAT 92
[2024-06-06 10:00] VITALS: BP 145/70; PULSE 68; RESP 12; O2SAT 96
--- NOTE | 2024-06-07 08:24 | PM.DS ---
DS: Admitting Diagnosis Discharge Date 06/06/24 DS: Summary Time Spent with Patient Time attestation: Total time spent providing and/or coordinating discharge services: Discharge Plan Discharge Attending physician on discharge: Sinan Davis Consulting providers: Narda Arguelles; Misael Anderson; Devang Ware; Irais Beltrán; Gasper Tinoco Jr. Discharging Clinician: Sinan Davis Patient Disposition: Home, Self-Care Activity: may shower, as tolerated, follow weight bearing status and other - see discharge instructions Diet: regular Wound Care Instructions: other - see discharge instructions Discharge Instructions: Dr. Sinan Davis M.D [address] [place] [id number] POST-OPERATIVE DISCHARGE INSTRUCTIONS TOTAL KNEE ARTHROPLASTY 1. When resting, do not rest in the chair.When resting, lie on your back, with back flat on the couch or bed, with leg elevated above heart to minimize swelling. You may put a pillow under your head. . Significant swelling could indicate a blood clot and if this occurs call the office (or go to the ER) to have a venous ultrasound. Therefore, do not rest in a chair. 2. At least five times a day spend several minutes stretching your knee into flexion while sitting in the chair and also stretching your knee out straight The abilities to bend your knee fulling and straighten your knee fully are two most important knee functions to focus on during your recovery. 3. It is ok to sit in chair to eat, use the toilet and receive a guest and to do your stretching exercises, but, sitting in a chair will cause your leg to swell. Therefore, avoid additional time sitting in the chair. and don't rest in the chair. 4. Wound Care: Nursing will give you an additional Mepilex dressing at the time of discharge. Patient to remove the dressing and apply a new Mepilex dressing at home 7 days after surgery and leave the dressing on until seen in office. 5. May shower with a Mepilex dressing in place.The water will run off the dressing. 6. Unless you are told otherwise, you may put full weight on your operated leg. Use a walker for balance and practice walking as normally as you can, ideally for a few minutes every hour while you are awake. 7. I would advise against putting ice packs on your knee incision. Ice constricts blood flow which can impar healing of the knee incision. IMPORTANT: Remember not to sit in the chair for more than 30 minutes at a time. As a rule, during the first 14 days after surgery, only sit in the chair to work on the chair knee bending stretch exercise, for meals or for use of the restroom. Sitting in the chair promotes significant swelling in the knee and leg which will make your knee stiff and more painful and which simulates having a blood clot in the veins of the leg. If this type of significant diffuse swelling occurs, an ultrasound at the hospital will be necessary to rule out a blood clot. Be up walking around with the walker for a few minutes every hour while awake and then rest laying on your back on the couch or in bed with your leg elevated on cushions or pillows. Do not rest in the chair. Stand Alone Forms: General Discharge Instructions Follow-up/Referrals: Sinan Davis MD [Physician] - Discharge Medications: New doxycycline hyclate 100 mg tablet 100 mg PO DAILY Qty: 10 0RF hydrocodone-acetaminophen 7.5-325 mg tablet 1 tablet PO Q4H PRN (Reason: pain) Qty: 40 0RF doxycycline hyclate 100 mg tablet 100 mg PO DAILY Qty: 10 0RF hydrocodone-acetaminophen 7.5-325 mg tablet 1 tablet PO Q4H PRN (Reason: pain) Qty: 40 0RF Continued multivitamin Tablet 1 tablet PO DAILY aspirin [Adult Aspirin Regimen] 81 mg tablet,delayed release (DR/EC) 81 mg PO DAILY ibuprofen 400 mg Tablet 400 mg PO Q6H PRN (Reason: Pain) acetaminophen 500 mg Capsule 1,000 mg
== END 2024-06-06 15:38 | disposition home or self-care (01) ==
LOC: ANHSURGERY 08:12 → ANH2MED 08:12
PROVIDERS: Admitting Provider Orthopaedic Surgery; PCP Nurse Practitioner Adult Health; Visit Provider Orthopaedic Surgery
PROC: (CPT 27447; principal; 2024-06-04 07:30)
DX: M17.11 Unilateral primary osteoarthritis, right knee (principal); G89.18 Other acute postprocedural pain; E66.9 Obesity, unspecified; Z68.34 Body mass index [BMI] 34.0-34.9, adult; Z87.891 Personal history of nicotine dependence
CPT/HCPCS: 27447; 64447; 36415; 73560; 80048; 83735; 85025; 97110; 97116; 97161; 97165; 97530; 97535; A9270; C1713; C1776; G0378; J0171; J0690; J1100; J1170; J1741; J1885; J2250; J2270; J2405; J2704; J2795; J3010; J3370; J7120

== ENCOUNTER 2024-07-23 03:16 | Day surgery (SDC) | payer SELFPAY ==
--- NOTE | 2024-07-19 07:44 | PM.IMHP ---
H&P: HPI History of Present Illness Date/Time: 07/19/24 07:44 Chief Complaint: Patient has knee pain and stiffness right knee. She underwent total knee arthroplasty and incredibly she does not have the insurance benefits for therapy. Despite the extensive effort to work with her on home exercise program she has lost motion. She would like to try manipulation to see if we can regain some of it. Review of Systems Musculoskeletal: Musculoskeletal: Reports arthralgias, Reports joint swelling and Reports stiffness PMFSH Past Medical History Medical History Anxiety Arthritis Emphysema lung Mild per patient report. Surgical History Surgical History History of arthroplasty of right knee (06/04/24) History of back surgery History of x3 Family History Family History Mother Family history of malignant neoplasm of brain Father History of ETOH abuse Social History Social History Social History: Surrogate medical decision maker: Robert Gonsales, spouse. Code status: Full code. Smoking packs per day: 1 Smoking cigarettes per day: 20.0 Years smoked: 43 Smoking pack-years: 43.00 Smoking status: Former smoker Tobacco type: cigarettes Smoking end date: 03/18/24 Alcohol intake: current Alcohol use details: Occasional Substance use: current Substance use type: marijuana Last use: 02/13/24 Do You Feel Safe in your Home?: Yes Lack of Transportation: No Lack of Food: Never True Current Housing: I Have Housing Concerned About Future Housing: No Difficulty Paying Gas/Electric Bills: No Difficulty Paying for Meds: No Currently Unemployed: No Education: High School Diploma/GED Difficulty w/ Childcare or Family Care: No Living arrangements: with family Additional living arrangements comments: Lives with spouse. Occupation/Education: occupation Additional occupation/education comments: [employer]. Spiritual care concerns: No Agree to blood products: Yes Meds Home Medications and Allergies Home Medications Medication Instructions Recorded Confirmed Type multivitamin 1 tablet PO DAILY 10/04/23 07/17/24 History acetaminophen 500 mg capsule 1,000 mg PO Q6H PRN Pain 02/16/24 07/17/24 History hydrocodone 7.5 mg-acetaminophen 1 tablet PO Q4H PRN pain #40 tabs 06/14/24 07/03/24 Rx 325 mg tablet aspirin 325 mg tablet 325 mg PO DAILY 06/19/24 07/17/24 History hydrocodone 5 mg-acetaminophen 325 1 tablet PO Q4H PRN pain #30 tabs 07/03/24 Rx mg tablet Allergies Allergy/AdvReac Type Severity Reaction Status Date / Time No Known Allergies Allergy Verified 07/17/24 07:32 Exam Narrative: Patient has pain with any manipulation of her right knee. She has motion from about 10 days 80?. The overall alignment in the is acceptable. The incision is well healed. She walks with an antalgic gait and limp. Neurologically she appears to be grossly intact. Eyes: General: appearance normal, both eyes and all related structures Neck: Neck: supple Resp: Effort & Inspection: normal respiratory effort Cardio: Rate: regular rate Rhythm: regular rhythm Assessment and Plan Assessment and plan (1) Arthrofibrosis of total knee arthroplasty: Code(s): T84.82XA - Fibrosis due to internal orthopedic prosthetic devices, implants and grafts, initial encounter Status: Acute Assessment and Plan: Patient has arthrofibrosis right knee after knee replacement surgery. Unfortunately she was denied therapy by her insurance. I have told her that she has one chance to get some more motion back. I will attempt a manipulation. We discussed fractured and other problems. Will proceed with a manipulation right knee. Hopefully she will gain most the some of the motion back. I did emphasize the fact that she still has to push it and exercise at home, even if she does not have therapy. Otherwise she will end up in the same position. I have discussed with her: risks, benefits, limitations, and alternatives in detail. (2) History of knee replacement procedure of right knee: Code(s): Z96.651 - Presence of right artificial knee joint Status: Acute
[2024-07-20 08:40] VITALS: BMI 33.5
--- NOTE | 2024-07-20 08:48 | PC.NURSE ---
Report to the Outpatient Waiting Room, entrance under the green pavilion located off [facility], at time _1000_ on date _[id number]_. Planned Procedure Time: _1200_.? Time changes happen often and if your time is changed the preop area will call you the afternoon before. - You and your visitor will be asked to self-screen and do not enter if you have any COVID symptoms. Please call surgeon if you need to reschedule. - A mask is optional within the hospital at this time. Patients may have clear liquids (water, carbonated beverages, clear teas, apple juice) until 3 hours prior to surgery with a maximum of 20 ounces. - No food from midnight until time of surgery and no smoking Take only the following medications with a SIP of water on the morning of surgery: __Acetaminophen if needed.____ DO NOT STOP ANY OF YOUR OTHER PRESCRIPTION MEDICATIONS PRIOR TO SURGERY EXCEPT THE FOLLOWING Medications to discontinue per physician ___Multivitamin and Aspirin____ Date to take last dose__Stop now. Please no make-up, nail egyptian, hairspray, perfume, deodorant, or body powder the day of surgery.? No jewelry (including any body piercings) or valuables the day of surgery, leave them at home.? Please take a shower or bath the night before, or the morning of, surgery with an antibacterial soap.? Wear comfortable, loose fitting clothing.? - Jewelry must be removed prior to entering the operating room.? Rings and piercings that are not removed may be cut off. - The hospital will not accept responsibility for valuables.? - Please leave all valuables, including medications, at home the day of surgery. If you are going home after surgery, a licensed fast food delivery driver must drive you home.? - NO public transportation without another adult if you receive anesthesia. - We recommend that an adult stay with you for 24 hours following discharge. - We also recommend that you do not drive, make important decision, drink alcoholic beverages, or take any drugs that were not prescribed by your health care provider for at least 24 hours after your discharge time. Follow any additional instructions given to you from your surgeon. Telephone instructions given to __Mary__and asked if any additional questions and then verbalized understanding. Patient advised to call surgeon office or pre surgery nurse liaison [phone] if any additional questions.
[2024-07-23 11:00] VITALS: BP 141/78; PULSE 73; RESP 16; TEMP 36.6; O2SAT 99; BMI 33.5
[2024-07-23] MEDS: ACETAMINOPHEN 500 MG TABLET 1000 MG PO (11:05)
[2024-07-23] MEDS: KETOROLAC 15 MG/ML VIAL (*BKC) IV PUSH (11:05)
[2024-07-23] MEDS: LACTATED RINGERS 1,000 ML 30 ML IV CONT (11:05)
--- NOTE | 2024-07-23 11:48 | WPDHPUPDATE1 ---
History and Physical Update Update Date/Time: 07/23/24 11:48 History and Physical has been reviewed, including an updated exam of the patient. There are NO changes in the patient's condition. Risks, benefits, and alternatives have been discussed and questions answered. Patient agrees to proceed with procedure.
--- NOTE | 2024-07-23 12:20 | P.PNAN_ITS ---
Anes - Initial Pre Proc Eval Procedure: Operation Date: 07/23/24 12:00 Proposed Procedures p Manipulation Right Knee - Sinan Davis MD Date/Time: 07/23/24 12:20 Surgeon: Sinan Davis MD Pre Op Diagnosis: Adhesive Capsulitis Right Knee Patient Data Age: 58 Gender: F Height: 1.57 m Weight: 83 kg Last Vital Signs Temp 98 F 07/23/24 11:00 Pulse 73 07/23/24 11:00 Resp 16 07/23/24 11:00 BP 141/78 H 07/23/24 11:00 Pulse Ox 99 07/23/24 11:00 O2 Del Method Room Air 07/23/24 11:00 Allergies Allergy/AdvReac Type Severity Reaction Status Date / Time No Known Allergies Allergy Verified 07/20/24 08:39 Home Medications Medication Instructions Recorded Confirmed Type multivitamin 1 tablet PO DAILY 10/04/23 07/20/24 History acetaminophen 500 mg capsule 1,000 mg PO Q6H PRN Pain 02/16/24 07/20/24 History aspirin 325 mg tablet 325 mg PO DAILY 06/19/24 07/20/24 History Patient hx anesthesia problems: none Family hx anesthesia problems: none Results Review: All pre-operative results and documents have been reviewed as part of the pre- operative evaluation. [facility] Past Medical History Medical History Anxiety Arthritis Emphysema lung Mild per patient report. Surgical History Surgical History History of arthroplasty of right knee (06/04/24) History of back surgery History of x3 Family History Family History Mother Family history of malignant neoplasm of brain Father History of ETOH abuse Social History Social History Social History: Surrogate medical decision maker: Robert Gonsales, spouse. Code status: Full code. Smoking packs per day: 1 Smoking cigarettes per day: 20.0 Years smoked: 42 Smoking pack-years: 42.00 Smoking status: Former smoker Tobacco type: cigarettes Smoking end date: 03/19/24 Alcohol intake: current Alcohol use details: Occasional Substance use: current Substance use type: marijuana Other substance usage details: Once a week maybe. Less than used to. Last use: 02/13/24 Do You Feel Safe in your Home?: Yes Lack of Transportation: No Lack of Food: Never True Current Housing: I Have Housing Concerned About Future Housing: No Difficulty Paying Gas/Electric Bills: No Difficulty Paying for Meds: No Currently Unemployed: No Education: High School Diploma/GED Difficulty w/ Childcare or Family Care: No Living arrangements: with family Additional living arrangements comments: Lives with spouse. Occupation/Education: occupation Additional occupation/education comments: [employer]. Spiritual care concerns: No Agree to blood products: Yes Anes - Eval Final PreProcedure Day of Procedure 07/23/24 12:20 Patient weight: normal Heart: regular rate and rhythm Lungs: clear to auscultation Airway: Mallampati scale class II and special considerations (R lower incisor still very loose, has not been pulled since prev GA. ) Neurological: alert and oriented Last oral intake: >/= 8 hours ASA classification: II Emergent: no Anesthetic plan: proceed Anesthesia type and monitoring: general GIVS and standard monitoring Results Review: All pre-operative results and documents have been reviewed as part of the pre- operative evaluation. Informed Consent: The patient's anesthetic plan and its attendant risks and benefits were discussed with the patient/family/POA. Questions were solicited and answers pro vided to the satisfaction of the patient/family/POA.
--- NOTE | 2024-07-23 12:33 | W.PM.PROC2 ---
Procedure Note - Detailed Date of Procedure 07/23/24 Pre-op Diagnosis Adhesive Capsulitis Right Knee Post-op Diagnosis Same Procedure Performed Manipulation right knee Surgeon Sinan Davis MD Anesthesia General Description of Procedure Patient was brought to operating room 8. A general anesthetic was administered. I gently manipulated the knee 1st into flexion and felt the bands tear. I was easily able to get 120?. I then tried to move manipulated into extension got a little bit more extension, but not a lot. Although she only lacks a few degrees of extension. At this point her motion was about 3 to 120?. With good stability. No appreciable fractures were noted. Complications No immediate complications Condition Stable Disposition PACU [facility] Billing Surgery - Charge Forward: Surgery Billing ([id number] Knee Manipulation)
[2024-07-23 12:38] VITALS: BP 127/68; PULSE 70; RESP 14; O2SAT 100
[2024-07-23] MEDS: oxyCODONE HCL (*CRX) 5 MG TAB IR PO (12:45)
[2024-07-23 13:08] VITALS: BP 122/67; PULSE 78
== END 2024-07-23 13:30 | disposition home or self-care (01) ==
PROVIDERS: PCP Nurse Practitioner Adult Health; Visit Provider Orthopaedic Surgery
PROC: (CPT 27570; principal; 2024-07-23 12:00)
DX: T84.82XA Fibrosis due to internal orthopedic prosthetic devices, implants and grafts, initial encounter (principal); Z96.651 Presence of right artificial knee joint; Z87.891 Personal history of nicotine dependence; F12.90 Cannabis use, unspecified, uncomplicated
CPT/HCPCS: 27570; A9270; J1885; J2003; J2250; J2405; J2704; J7120

== ENCOUNTER 2024-09-19 09:07 | Outpatient (CLI) | payer OTHER, SELFPAY ==
[2024-09-19 19:19] LABS: Hematocrit 44.3 % (37.0-47.0); Hemoglobin 13.8 g/dL (12.0-15.0); Mean Corpuscular HGB Conc 31.2 g/dl (32-36); Mean Corpuscular Hemoglobin 29.2 pg (26-34); Mean Corpuscular Volume 93.7 fl (80-100); Mean Platelet Volume 9.8 fl (7.4-10.4); Platelet Count Result 441 k/mm3 (150-375); Red Blood Count 4.73 M/mm3 (4.2-5.4); Red Cell Distribution Width 12.6 % (11.5-14.5)
[2024-09-19 20:26] LABS: Alanine Aminotransferase 20 U/L (6-35); Albumin Level 4.2 g/dL (3.5-5.1); Alkaline Phosphatase 78 U/L (38-126); Anion Gap 6 mmol/L (4-12); Aspartate Amino Transferase 44 U/L (14-36); Bilirubin,Total 0.4 mg/dL (0.2-1.3); Blood Urea Nitrogen 16 mg/dL (7-17); Calcium 9.1 mg/dL (8.4-10.2); Carbon Dioxide 30 mmol/L (22-30); Chloride 103 mmol/L (98-107); Cholesterol 237 mg/dL (0-200); Estimated Glomerular Filt Rate > 60; Glucose 80 mg/dL (65-110); HDL Direct 57 mg/dL; Potassium 4.5 mmol/L (3.4-5.0); Sodium 139 mmol/L (137-145); Triglycerides 139 mg/dL (<150)
[2024-09-19 20:41] LABS: LDL Cholesterol Direct 124 mg/dL
[2024-09-19 21:54] LABS: Hemoglobin A1C 5.4 % (<5.7)
== END 2024-09-19 09:08 | disposition home or self-care (01) ==
LOC: ANHBWCLAB 09:09
PROVIDERS: PCP Nurse Practitioner Adult Health; Visit Provider Nurse Practitioner Adult Health
DX: Z13.9 Encounter for screening, unspecified (principal); R63.5 Abnormal weight gain
CPT/HCPCS: 36415; 80053; 80061; 83036; 85027

== ENCOUNTER 2024-09-19 10:52 | Emergency (ER) | payer OTHER, SELFPAY ==
--- NOTE | ~2024-09-19 | XR_ITS ---
XR hand LT min 3V Ordering provider: Anny Mauro APRN History: . FOOSH, 1ST AND 3RD DIGIT PAIN GENERALIZED . Comparison: None. FINDINGS: BONES: No acute fracture or dislocation. JOINT SPACES: Narrowing of the distal interphalangeal joints. SOFT TISSUES: Unremarkable. IMPRESSION: No acute osseous abnormality left hand. 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 Reviewed, dictated and finalized at location A. [facility] [employer]
[2024-09-19 11:06] VITALS: BP 179/92; PULSE 94; RESP 16; TEMP 37; O2SAT 97
--- NOTE | 2024-09-19 11:13 | ED.UPPEXIN ---
HPI - Extremity Injury (Upper) General Chief Complaint: Extremity Injury, Upper Stated Complaint: Fall Injury/Left hand/Finger Injury Time Seen by Provider: 09/19/24 11:13 Source: patient Mode of arrival: ambulatory Limitations: no limitations History of Present Illness HPI narrative: 58-year-old female presented for complaint of left hand pain after falling today. She states she slipped on the ice and landed on the left hand. Endorses pain to the thumb and middle finger. Small amount of bleeding under the nail of the middle finger. Denies numbness, tingling, weakness or deformity. Related Data Home Medications ?Medication ?Instructions ?Recorded ?Confirmed ?Last Taken ?Type No Home Medications 09/19/24 Unknown History Allergies Allergy/AdvReac Type Severity Reaction Status Date / Time No Known Allergies Allergy Verified 09/19/24 11:08 Review of Systems Review of Systems: CONSTITUTIONAL: Denies body aches, fever, chills CARDIOVASCULAR: Denies chest pain, palpitations, or edema. RESPIRATORY: Denies cough or dyspnea. SKIN: reports left middle digit bleeding under nail MUSCULOSKELETAL: Reports left hand pain NEUROLOGIC: Denies headache, numbness, tingling, or weakness. All systems reviewed & are unremarkable except as noted in HPI and below PMFSH Past Medical History Medical History Arthritis Anxiety Emphysema lung Mild per patient report. Surgical History Surgical History History of arthroplasty of right knee (06/04/24) History of back surgery History of x3 Family History Family History Mother Family history of malignant neoplasm of brain Father History of ETOH abuse Social History Social History Social History: Surrogate medical decision maker: Robert Idla, spouse. Code status: Full code. Smoking packs per day: 1 Smoking cigarettes per day: 20.0 Years smoked: 42 Smoking pack-years: 42.00 Smoking status: Former smoker Tobacco type: cigarettes Smoking end date: 03/19/24 Alcohol intake: current Alcohol use details: Occasional Substance use: current Substance use type: marijuana Other substance usage details: Once a week maybe. Less than used to. Last use: 02/13/24 Do You Feel Safe in your Home?: Yes Lack of Transportation: No Lack of Food: Never True Current Housing: I Have Housing Concerned About Future Housing: No Difficulty Paying Gas/Electric Bills: No Difficulty Paying for Meds: No Currently Unemployed: No Education: High School Diploma/GED Difficulty w/ Childcare or Family Care: No Living arrangements: with family Additional living arrangements comments: Lives with spouse. Occupation/Education: occupation Additional occupation/education comments: [employer]. Spiritual care concerns: No Agree to blood products: Yes Comments At time of signature, I have reviewed and agree with nursing past medical, surgical, social and family history unless otherwise noted. Please see nursing chart for further information. There is no relevant family history pertinent to the presenting complaint Exam Narrative: GENERAL: Well-appearing CHEST: Speaks in full sentences. No respiratory distress. HEART: Regular rate and rhythm. Normal and equal peripheral pulses. EXTREMITIES: Left hand has normal strength and sensation, normal range of motion to digits, endorses pain with movement of thumb. Mild bruising to base of thumb. No swelling, No point tenderness. Scant bleeding to distal nail of 3rd digit. No laceration, no nail damage. No obvious deformity; pulse palpable and equal bilaterally, skin warm, dry, pink. Capillary refill less than 3 seconds. SKIN: Warm, dry NEURO: Alert and oriented x3. PSYCH: Normal mood and affect Course Course Emergency Course: Patient is aware of diagnosis, understands and agrees to treatment plan. Anticipatory guidance given. Patient agrees to follow-up as directed and is aware of reasons to seek care at the emergency department. Portions of this record may have been created with voice recognition software Level of Care: Express Care Visit Vital Signs Vital signs: Vital Signs Temperature 98.6 F 09/19/24 11:06 Pulse Rate 94 09/19/24 11:06 Respiratory Rate 16 09/19/24 11:06 Blood Pressure 179/92 H 09/19/24 11:06 Pulse Oximetry 97 09/19/24 11:06 Oxygen Delivery Room Air 09/19/24 11:06 Temperature 98.6 F 09/19/24 11:06 Pulse Rate 94 09/19/24 11:06 Respiratory Rate 16 09/19/24 11:06 Blood Pressure 179/92 H 09/19/24 11:06 Pulse Oximetry 97 09/19/24 11:06 Oxygen Delivery Room Air 09/19/24 11:06 Reviewed MDM - Extremity Injury (Upper) MDM Narrative Medical decision making narrative: Discussed physical exam findings and x-ray. SABA and Band-Aid applied to the left 3rd digit. Advised supportive measures and signs/symptoms to go to the ER. Pt is appropriate for outpt treatment and f/u. Differential Diagnosis Differential diagnosis: Likely fracture of wrist, finger sprain, fracture of hand and other ( laceration, abrasion, avulsion contusion) Imaging Data Radiologist's impression: Patient: Justine Gonsales : 1965 MR#: [id number] Age: 58 Acct:[id number] Loc: [facility] ADM Date: 09/19/24Attending Dr: Ordering Physician: Anny Mauro APRN Date of Service: 09/19/24 Procedure(s): XR hand LT min 3V Accession Number(s): [id number] cc: Anny Mauro APRN; Chantel Ross APRN~ XR hand LT min 3V Ordering provider: Anny Mauro APRN History: . FOOSH, 1ST AND 3RD DIGIT PAIN GENERALIZED . Comparison: None. FINDINGS: BONES: No acute fracture or dislocation. JOINT SPACES: Narrowing of the distal interphalangeal joints. SOFT TISSUES: Unremarkable. IMPRESSION: No acute osseous abnormality left hand. 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 Discharge Plan Discharge Clinical Impression: Contusion of hand, left Qualifiers: Encounter type: initial encounter Qualified Code(s): S60.222A - Contusion of left hand, initial encounter Patient Disposition: Home, Self-Care Condition: Stable Instructions: Contusion in Adults (ED) Additional Instructions: Rest and elevate the left hand, activity as tolerated. Avoid lifting, pushing, or pulling if worsens the pain Apply ice 15-20 minute intervals several times a day Motrin 800mg every 8 hours, alternate with Tylenol 1000mg every 8 hours as needed Follow up with your primary care provider go to the ER for worsening symptoms or concerns Patient Language: Icelandic Prescriptions: No Action No Home Medications Follow-up/Referrals: Chantel Ross APRN [Primary Care Provider] - Time of Disposition: 11:38
== END 2024-09-19 11:41 | disposition home or self-care (01) ==
PROVIDERS: Emergency Provider Nurse Practitioner Family; PCP Nurse Practitioner Adult Health
DX: S60.222A Contusion of left hand, initial encounter (principal); Z87.891 Personal history of nicotine dependence; W00.0XXA Fall on same level due to ice and snow, initial encounter
CPT/HCPCS: 73130; 99212; G0463